=== PATIENT | female | born 2000 | race Asian ===

== ENCOUNTER 2019-06-14 11:50 | Emergency (ER) | payer MEDICAID ==
[~2019-06-14] VITALS: Ht 177.8 cm; Wt 101.2 kg
[2019-06-14 12:00] VITALS: BP 121/83
== END 2019-06-14 13:12 | disposition home or self-care (01) ==
LOC: ED 13:06
DX: L03.114 Cellulitis of left upper limb (principal); F17.200 Nicotine dependence, unspecified, uncomplicated
CPT/HCPCS: 99283